=== PATIENT | male | born 1965 | race African-American/Black ===

== ENCOUNTER 2017-10-29 17:13 | Inpatient (IN) | payer MEDICARE ==
[~2017-10-29] VITALS: Ht 188 cm; Wt 81.9 kg
[2017-10-29] MEDS ORDERED: SODIUM CHLORIDE 0.9% 1,000 ML IV ONE (17:19)
[2017-10-29] MEDS ORDERED: PLEASE ENTER HEIGHT AND WEIGHT MC SCH (17:29)
[2017-10-29] MEDS ORDERED: SODIUM CHLORIDE FLUSH 10ML SYR IVF ONE (17:30)
[2017-10-29] MEDS ORDERED: ONDANSETRON 2MG/ML, 2ML IVPush ONE (17:30)
[2017-10-29] MEDS ORDERED: SODIUM CHLORIDE 0.9% 1,000ML IVBOLUS ONE (17:30)
[2017-10-29] MEDS ORDERED: KETOROLAC 30 MG/1 ML IVPush ONE (17:30)
[2017-10-29] MEDS ORDERED: PLEASE ENTER ALLERGIES MC SCH (17:30)
[2017-10-29] MEDS ORDERED: ONDANSETRON 2MG/ML, 2ML ONE (17:36)
[2017-10-29] MEDS ORDERED: KETOROLAC 30 MG/1 ML ONE (17:36)
[2017-10-29 17:51] LABS: BASOPHILS # (AUTO) 0.01 x10^3/uL (0-0.1); BASOPHILS % (AUTO) 0 % (0-1); EOSINOPHILS # (AUTO) 0.02 x10^3/uL (0-0.4); EOSINOPHILS % (AUTO) 0 % (1-7); LYMPHOCYTES # (AUTO) 0.48 x10^3/uL (1-3.4); LYMPHOCYTES % (AUTO) 9 % (22-44); MD NO; MEAN CORPUSCULAR HEMOGLOBIN 31.2 pg (27.5-34.5); MEAN CORPUSCULAR HGB CONC 33.8 g/dL (33.2-36.2); MEAN CORPUSCULAR VOLUME 92.3 fL (81-97); MEAN PLATELET VOLUME 7.8 fL (7.4-10.4); MONOCYTES # (AUTO) 0.27 x10^3/uL (0.2-0.8); MONOCYTES % (AUTO) 5 % (2-9); NEUTROPHILS # (AUTO) 4.88 x10^3/uL (1.8-6.8); NEUTROPHILS % (AUTO) 86 % (42-75); PLATELET COUNT 257 x10^3/uL (130-400); RED BLOOD COUNT 5.07 x10^6/uL (4.38-5.82); RED CELL DISTRIBUTION WIDTH 13.9 % (9.4-14.8)
[2017-10-29] MEDS ORDERED: CEFTRIAXONE PMX 1GM/50ML 50 ML IVPB ONE (18:00)
[2017-10-29] MEDS ORDERED: ACETAMINOPHEN 500 MG TABLET PO ONE (18:00)
[2017-10-29] MEDS ORDERED: AZITHROMYCIN 500 MG in SODIUM CHLORIDE 0.9% 250 ML IVPB ONE (18:00)
[2017-10-29 18:02] LABS: ALANINE AMINOTRANSFERASE 23 U/L (12-78); ALBUMIN 3.8 g/dL (3.4-5.0); ANION GAP 9 mmol/L (5-15); CALCIUM 8.6 mg/dL (8.5-10.1); CHLORIDE 107 mmol/L (98-107); CREATININE 1.09 mg/dL (0.7-1.3)
[2017-10-29 18:04] LABS: ALKALINE PHOSPHATASE 46 U/L (45-117); BILIRUBIN,TOTAL 1.2 mg/dL (0.2-1.0); TOTAL PROTEIN 7.9 g/dL (6.4-8.2)
[2017-10-29] MEDS ORDERED: CEFTRIAXONE PMX 1GM/50ML 50 ML ONE (18:05)
[2017-10-29] MEDS ORDERED: ACETAMINOPHEN 500 MG TABLET ONE (18:05)
[2017-10-29 18:47] LABS: MICROSCOPIC AUTO
[2017-10-29 18:49] LABS: CULTURE INDICATED? YES
[2017-10-29] MEDS ORDERED: SODIUM CHLORIDE FLUSH 10ML SYR IVF PRN (20:30)
[2017-10-29 21:00] VITALS: BP 131/91
[2017-10-30] MEDS ORDERED: POLYETHYLENE GLYCOL 17 GM PACKET PO PRN
[2017-10-30] MEDS ORDERED: DOCUSATE 100 MG CAPSULE PO PRN
[2017-10-30] MEDS ORDERED: LABETALOL 5MG/ML, 20ML IVPush PRN
[2017-10-30] MEDS ORDERED: BISACODYL 10 MG SUPP PR PRN
[2017-10-30] MEDS ORDERED: morphine SULFATE 10 MG/ML, 1ML IVPush PRN
[2017-10-30] MEDS ORDERED: ONDANSETRON 2MG/ML, 2ML IVPush PRN
[2017-10-30] MEDS ORDERED: hydrALAzine 20 MG/ML, 1ML IVPush PRN
[2017-10-30] MEDS ORDERED: ACETAMINOPHEN 325 MG TABLET PO PRN
[2017-10-30 00:12] LABS: CLOSTRIDIUM DIFFICILE ANTIGEN NEGATIVE; CLOSTRIDIUM DIFFICILE TOXIN NEGATIVE (Negative)
[2017-10-30 00:33] LABS: RAPID INFLUENZA A Negative (Negative); RAPID INFLUENZA B POSITIVE (Negative)
[2017-10-30 00:44] LABS: FREE T4 (FREE THYROXINE) 0.86 ng/dL (0.76-1.46); THYROID STIMULATING HORMONE 0.271 mIU/L (0.358-3.740)
[2017-10-30 01:07] LABS: HEMOGLOBIN A1C 5.6 % (4.2-6.3)
[2017-10-30] MEDS: OSELTAMIVIR 75 MG CAPSULE PO SCH ×3 (01:07→20:07)
[2017-10-30] MEDS: ENOXAPARIN 40 MG/0.4 ML SQ SCH (01:07)
[2017-10-30 01:21] VITALS: BP 141/89
[2017-10-30] MEDS ORDERED: ALBUTEROL SULFATE 2.5 MG/3 ML NPPB PRN (01:30)
[2017-10-30] MEDS: SODIUM CHLORIDE 0.9% 1,000 ML IV SCH ×2 (03:30→20:07)
[2017-10-30 05:32] LABS: BASOPHILS % (AUTO) 0 % (0-1); EOSINOPHILS % (AUTO) 0 % (1-7); LYMPHOCYTES # (AUTO) 0.77 x10^3/uL (1-3.4); LYMPHOCYTES % (AUTO) 16 % (22-44); MD NO; MEAN CORPUSCULAR HEMOGLOBIN 30.9 pg (27.5-34.5); MEAN CORPUSCULAR HGB CONC 33.5 g/dL (33.2-36.2); MEAN CORPUSCULAR VOLUME 92.2 fL (81-97); MEAN PLATELET VOLUME 7.5 fL (7.4-10.4); MONOCYTES # (AUTO) 0.37 x10^3/uL (0.2-0.8); MONOCYTES % (AUTO) 8 % (2-9); NEUTROPHILS % (AUTO) 76 % (42-75); PLATELET COUNT 196 x10^3/uL (130-400); RED CELL DISTRIBUTION WIDTH 13.8 % (9.4-14.8)
[2017-10-30 05:35] LABS: CHLORIDE 109 mmol/L (98-107)
[2017-10-30 05:42] LABS: ALANINE AMINOTRANSFERASE 18 U/L (12-78); ALKALINE PHOSPHATASE 38 U/L (45-117); ANION GAP 5 mmol/L (5-15); BILIRUBIN,TOTAL 1.6 mg/dL (0.2-1.0); CALCIUM 7.3 mg/dL (8.5-10.1); CHOL/HDL RATIO 2.3; CHOLESTEROL, TOTAL 107 mg/dL (140-239); CREATININE 0.91 mg/dL (0.7-1.3); HDL CHOL % 44 % (26-37); HDL CHOLESTEROL (DIRECT) 47 mg/dL (40-60); LDL CHOLESTEROL,CALCULATED 50 mg/dL (54-169); LDL/HDL RATIO 1.1 (0.5-3.0); TOTAL PROTEIN 6.4 g/dL (6.4-8.2); TRIGLYCERIDES 49 mg/dL (50-200); VLDL CHOLESTEROL 10 mg/dL (0-25)
[2017-10-30 08:12] VITALS: BP 155/92
[2017-10-30] MEDS ORDERED: POTASSIUM PHOSPHATE 44 MEQ in SODIUM CHLORIDE 0.9% 500 ML IV ONE (09:00)
[2017-10-30] MEDS ORDERED: MAGNESIUM SULFATE 6 GM in SODIUM CHLORIDE 0.9% 100 ML IV ONE (09:00)
[2017-10-30] MEDS: DOXYCYCLINE 100MG TABLET PO SCH ×2 (09:10→20:07)
[2017-10-30] MEDS: LISINOPRIL 20 MG TABLET PO SCH (09:10)
[2017-10-30] MEDS: CEFTRIAXONE PMX 2GM/50ML 50 ML IV SCH (09:10)
[2017-10-30] MEDS ORDERED: SODIUM CHLORIDE INHALATION 7%, 4 ML NPPB ONE (14:00)
[2017-10-30 14:45] VITALS: BP 155/98
[2017-10-30 19:38] VITALS: BP 157/100
[2017-10-30] MEDS ORDERED: IBUPROFEN 200 MG TABLET PO ONE (21:00)
[2017-10-31] MEDS: ENOXAPARIN 40 MG/0.4 ML SQ SCH (01:01)
[2017-10-31 02:02] VITALS: BP 146/85
[2017-10-31 05:48] LABS: BASOPHILS # (AUTO) 0.02 x10^3/uL (0-0.1); BASOPHILS % (AUTO) 1 % (0-1); EOSINOPHILS # (AUTO) 0.28 x10^3/uL (0-0.4); EOSINOPHILS % (AUTO) 6 % (1-7); LYMPHOCYTES % (AUTO) 35 % (22-44); MD NO; MEAN CORPUSCULAR HEMOGLOBIN 31.2 pg (27.5-34.5); MEAN CORPUSCULAR HGB CONC 33.4 g/dL (33.2-36.2); MEAN CORPUSCULAR VOLUME 93.3 fL (81-97); MEAN PLATELET VOLUME 7.7 fL (7.4-10.4); MONOCYTES # (AUTO) 0.53 x10^3/uL (0.2-0.8); MONOCYTES % (AUTO) 12 % (2-9); NEUTROPHILS % (AUTO) 46 % (42-75); PLATELET COUNT 202 x10^3/uL (130-400); RED CELL DISTRIBUTION WIDTH 13.8 % (9.4-14.8)
[2017-10-31 06:01] LABS: CHLORIDE 109 mmol/L (98-107)
[2017-10-31 06:09] LABS: ALANINE AMINOTRANSFERASE 18 U/L (12-78); ALBUMIN 3.3 g/dL (3.4-5.0); ALKALINE PHOSPHATASE 39 U/L (45-117); ANION GAP 5 mmol/L (5-15); BILIRUBIN,TOTAL 0.9 mg/dL (0.2-1.0); CREATININE 0.71 mg/dL (0.7-1.3)
[2017-10-31 07:15] VITALS: BP 151/101
[2017-10-31] MEDS: LISINOPRIL 20 MG TABLET PO SCH (08:37)
[2017-10-31] MEDS: OSELTAMIVIR 75 MG CAPSULE PO SCH ×2 (08:37→21:17)
[2017-10-31] MEDS: DOXYCYCLINE 100MG TABLET PO SCH ×2 (08:38→21:17)
[2017-10-31] MEDS: CEFTRIAXONE PMX 2GM/50ML 50 ML IV SCH (09:00)
[2017-10-31] MEDS ORDERED: POTASSIUM PHOSPHATE 22 MEQ in SODIUM CHLORIDE 0.9% 500 ML IV ONE (10:00)
[2017-10-31 13:55] VITALS: BP 154/96
[2017-10-31 19:50] VITALS: BP 170/108
[2017-10-31] MEDS: IBUPROFEN 200 MG TABLET PO PRN (21:17)
[2017-11-01] MEDS: ENOXAPARIN 40 MG/0.4 ML SQ SCH (01:41)
[2017-11-01 01:49] VITALS: BP 153/96
[2017-11-01 05:27] LABS: ALBUMIN 3.2 g/dL (3.4-5.0); ANION GAP 8 mmol/L (5-15); CALCIUM 8.2 mg/dL (8.5-10.1); CHLORIDE 108 mmol/L (98-107)
[2017-11-01 05:32] LABS: ALANINE AMINOTRANSFERASE 19 U/L (12-78); ALKALINE PHOSPHATASE 38 U/L (45-117); BILIRUBIN,TOTAL 0.6 mg/dL (0.2-1.0); CREATININE 0.72 mg/dL (0.7-1.3)
[2017-11-01 08:02] VITALS: BP 166/96
[2017-11-01] MEDS ORDERED: MAGNESIUM SULFATE PMX 2GM/50ML 50 ML IV ONE (08:30)
[2017-11-01] MEDS ORDERED: POTASSIUM PHOSPHATE 44 MEQ in SODIUM CHLORIDE 0.9% 500 ML IV ONE (08:30)
[2017-11-01] MEDS: POTASSIUM CHLORIDE 20 MEQ TAB.ER.PRT PO SCH ×2 (08:30→12:04)
[2017-11-01] MEDS: LISINOPRIL 20 MG TABLET PO SCH (09:00)
[2017-11-01] MEDS: OSELTAMIVIR 75 MG CAPSULE PO SCH ×2 (09:00→20:47)
[2017-11-01] MEDS: DOXYCYCLINE 100MG TABLET PO SCH ×2 (09:00→20:47)
[2017-11-01] MEDS: CEFTRIAXONE PMX 2GM/50ML 50 ML IV SCH (12:04)
[2017-11-01 13:00] VITALS: BP 168/100
[2017-11-01 19:45] VITALS: BP 161/99
[2017-11-01] MEDS: IBUPROFEN 200 MG TABLET PO PRN (20:48)
[2017-11-01] MEDS: OXYcodone IR 5MG TABLET PO PRN (22:20)
[2017-11-02] MEDS: ENOXAPARIN 40 MG/0.4 ML SQ SCH (00:37)
[2017-11-02 05:50] LABS: ANION GAP 6 mmol/L (5-15); CALCIUM 8.5 mg/dL (8.5-10.1); CHLORIDE 108 mmol/L (98-107)
[2017-11-02 05:53] LABS: CREATININE 0.68 mg/dL (0.7-1.3)
[2017-11-02 07:57] VITALS: BP 167/89
[2017-11-02] MEDS: OSELTAMIVIR 75 MG CAPSULE PO SCH ×2 (08:44→21:24)
[2017-11-02] MEDS: DOXYCYCLINE 100MG TABLET PO SCH ×2 (08:44→21:24)
[2017-11-02] MEDS: OXYcodone IR 5MG TABLET PO PRN ×3 (08:45→21:24)
[2017-11-02] MEDS ORDERED: LISINOPRIL 20 MG TABLET PO SCH (09:00)
[2017-11-02] MEDS: SODIUM CHLORIDE 0.9% 1,000 ML IV SCH ×2 (10:55→21:00)
[2017-11-02] MEDS: CEFTRIAXONE PMX 2GM/50ML 50 ML IV SCH (10:55)
[2017-11-02] MEDS: IBUPROFEN 200 MG TABLET PO PRN ×2 (11:20→21:25)
[2017-11-02 14:29] VITALS: BP 150/93
[2017-11-02 19:41] VITALS: BP 153/95
[2017-11-02] MEDS: LISINOPRIL 20 MG TABLET PO SCH (21:24)
[2017-11-03 01:01] VITALS: BP 163/94
[2017-11-03] MEDS: OXYcodone IR 5MG TABLET PO PRN ×2 (05:25→11:42)
[2017-11-03 07:56] VITALS: BP 128/83
[2017-11-03] MEDS: ENOXAPARIN 40 MG/0.4 ML SQ SCH (09:00)
[2017-11-03] MEDS: DOXYCYCLINE 100MG TABLET PO SCH (09:00)
[2017-11-03] MEDS: LISINOPRIL 20 MG TABLET PO SCH (09:00)
[2017-11-03 09:02] VITALS: BP 168/99
[2017-11-03] MEDS: SODIUM CHLORIDE 0.9% 1,000 ML IV SCH (09:02)
[2017-11-03] MEDS ORDERED: CEFD300C37 PO (09:45)
[2017-11-03] MEDS ORDERED: HYDR-3342 PO (09:45)
[2017-11-03] MEDS ORDERED: LISI-170 PO (09:45)
[2017-11-03] MEDS ORDERED: DOXY100T PO (09:45)
[2017-11-03] MEDS ORDERED: FLU VACC QS2017-18 (36MOS+) UP/PF 0.5 ML IM-VACC ONE (11:30)
[2017-11-03] MEDS ORDERED: CEFTRIAXONE 2 GM in DEXTROSE 5% 50 ML IV SCH (11:45)
[2017-11-03] MEDS ORDERED: PNEUMOCOCCAL 23 VACCINE IM-VACC ONE (12:00)
== END 2017-11-03 13:07 | disposition home or self-care (01) | DRG 871 ==
LOC: ED 20:48 → 4NOR 20:50
PROVIDERS: ADMIT Internal Medicine; ATTEND Internal Medicine
DX: A41.9 Sepsis, unspecified organism (principal); J96.01 Acute respiratory failure with hypoxia; J15.9 Unspecified bacterial pneumonia; N39.0 Urinary tract infection, site not specified; J84.10 Pulmonary fibrosis, unspecified; E83.42 Hypomagnesemia; I10 Essential (primary) hypertension; E83.39 Other disorders of phosphorus metabolism; E07.81 Sick-euthyroid syndrome; Z82.3 Family history of stroke; Z82.49 Family history of ischemic heart disease and other diseases of the circulatory system; Z23 Encounter for immunization
CPT/HCPCS: 36415; 71046; 71275; 80048; 80053; 80061; 81001; 83036; 83605; 83690; 83735; 84100; 84145; 84439; 84443; 85025; 87040; 87086; 87324; 87400; 94640; 96361; 96365; 96366; 96368; 96375; J0456; J0696; J1650; J1885; J2405; J3475; J0360; J7030; J7040; J7050